=== PATIENT | female | born 1950 | race Caucasian/White ===

== ENCOUNTER → 2018-05-27 07:52 | Outpatient (CLI) | payer MEDICARE, OTHER, SELFPAY ==
[2018-05-27 08:44] LABS: Add Manual Diff / Slide Review NO; Basophils Percent Auto 1.1 % (0-2); Eosinophils Percent Auto 7.6 % (2-4); Hematocrit 37.5 % (36-46); Hemoglobin 12.4 g/dL (12.0-16.0); Lymphocytes Percent Auto 29.7 % (25-40); Mean Corpuscular HGB Conc 33.1 % (30-36); Mean Corpuscular Hemoglobin 27.9 PG (26-34); Mean Corpuscular Volume 84.3 fL (80-100); Monocytes Percent Auto 7.9 % (3-14); Neutrophils Absolute Auto 3300 /uL (3000-5900); Neutrophils Percent Auto 53.7 % (50-75); Platelet Count 301 X10^3/uL (150-400); Red Blood Cell Count 4.45 X10^6/uL (4.0-5.2); Red Cell Distribution Width 14.4 % (11.6-14.8); White Blood Cell Count 6.2 X10^3/uL (4.5-11.0)
[2018-05-27 08:45] LABS: Hemoglobin A1C% w Est Avg Glu 7.2 % (4.0-6.0)
[2018-05-27 09:16] LABS: Alanine Aminotransferase 17 IU/L (9-52); Albumin 4.4 g/dL (3.5-5.0); Albumin Globulin Ratio 1.4 (1.0-2.8); Alkaline Phosphatase 65 U/L (38-126); Aspartate Aminotransferase 18 IU/L (14-36); Bilirubin Total 0.4 mg/dL (0.2-1.3); Blood Urea Nitrogen 27 mg/dL (7-17); Calcium 10.1 mg/dL (8.4-10.2); Carbon Dioxide 27 mmol/L (22-32); Chloride 102 mmol/L (98-107); Cholesterol 300 mg/dL (140-199); Estimated Glomerular Filt Rate 34.4 mL/min (>60); Globulin 3.2 g/dL (1.7-4.1); Glucose 144 mg/dL (80-110); HDL Cholesterol 50 mg/dL (40-60); HEMOLYSIS < 15 (0-50); LDL Cholesterol Calculated 180 mg/dL (<100); Potassium 4.7 mmol/L (3.4-5.1); Sodium 141 mmol/L (137-145); Total Protein 7.6 g/dL (6.3-8.2); Triglycerides 350 mg/dL (35-150)
[2018-05-27 09:39] LABS: Thyroid Stimulating Hormone 2.36 uIU/mL (0.47-4.68)
[2018-05-27 10:59] LABS: Creatinine Urine Random 94.6 mg/dL
[2018-05-27 11:03] LABS: Microalbumi Creatinin Ratio Ur 59.1 ug/mg CR (<30); Microalbumin Urine Random 5.6 mg/dL (0-1.6)
== END ==
PROVIDERS: Family Provider Family Medicine; PCP Family Medicine; Visit Provider Family Medicine
DX: E11.9 Type 2 diabetes mellitus without complications (principal); R73.09 Other abnormal glucose; E66.9 Obesity, unspecified; I10 Essential (primary) hypertension; E78.5 Hyperlipidemia, unspecified
CPT/HCPCS: 36415; 80053; 80061; 82043; 82570; 83036; 84443; 85025

== ENCOUNTER → 2018-05-28 09:35 | Outpatient (CLI) | payer MEDICARE, OTHER, SELFPAY ==
--- NOTE | 2018-05-28 09:37 | DI.RAD.S_ITS ---
PROCEDURE: XR FOOT RT MIN 3V INDICATIONS: Right second toe growth TECHNIQUE: 3 views of the foot were acquired. COMPARISON: [facility], CR, ANKLE 3 VIEWS LEFT, 03/24/2015, 9:00. FINDINGS: Bones: No fractures or dislocations. No suspicious bony lesions. Second toe DIP joint degeneration with adjacent ununited ossicle. There is also possible subchondral osteophyte formation of the middle phalanx. There is also diffuse distal interphalangeal degenerative change. Posterior/plantar calcaneal spurring. There is diffuse midfoot joint degeneration. Soft tissues: No tibiotalar joint effusion. Achilles tendon appears normal. 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 If there is concern for soft tissue mass, contrast-enhanced MRI could be performed as clinically warranted. Possible subchondral osteophyte at the second to DIP joint although if there is suspicion for a alternative etiology, continued serial radiographic surveillance could be performed. Dictated by: Tarun Mccullough M.D. on 05/28/2018 at 10:17 Approved by: Tarun Mccullough M.D. on 05/28/2018 at 10:25
== END ==
PROVIDERS: Family Provider Family Medicine; PCP Family Medicine; Visit Provider Registered Nurse
DX: M20.61 Acquired deformities of toe(s), unspecified, right foot (principal); M19.071 Primary osteoarthritis, right ankle and foot
CPT/HCPCS: 73630

== ENCOUNTER → 2018-06-04 17:23 | Outpatient (CLI) | payer MEDICARE, OTHER, SELFPAY ==
--- NOTE | 2018-06-04 17:28 | DI.MRI.S_ITS ---
PROCEDURE: MR FOOT RT WO/W CON INDICATIONS: Right second toe deformity. Abnormal X-ray TECHNIQUE: Noncontrast sagittal T1 spin echo and T2 fast spin echo with fat saturation, long-axis T1 spin echo and T2 fast spin echo with fat saturation; short-axis T1 spin echo, proton density fast spin echo, and T2 fast spin echo with fat saturation through the forefoot. Post-contrast short axis, long axis, and sagittal T1 spin echo with fat saturation through the forefoot. COMPARISON: [facility], CR, XR FOOT RT MIN 3V, 05/28/2018, 9:37. FINDINGS: Image quality: Excellent. Bones and joints: No suspicious osseous enhancement. The area of radiographic abnormality described on prior study dated 05/28/18, there is no suspicious marrow signal change or enhancement. There is no loss of the normal marrow fat signal intensity on T1-weighted images and the radiographic appearance probably reflects degenerative changes, no discrete mass lesion identified. There is severe PIP and DIPs second toe joint degeneration. There is mild first and fifth MTP joint degeneration. Great toe interphalangeal degeneration with subchondral edema. No bone marrow contusions or metatarsal stress fractures. The sesamoid bones appear in expected positions, without internal edema. No intraosseous lesions. Soft tissues: Within the plantar subcutaneous soft tissues of the second toe the level of the PIP joint, there is 7 mm focus of ill-defined subcutaneous enhancement, too small to characterize and technically nonspecific. The pattern appears non-masslike. The visualized plantar foot muscles demonstrate normal signal and bulk. Visualized flexor and extensor tendons appear intact, without tenosynovitis. The distal insertions of the peroneus brevis and longus tendons appear intact. The principal Lisfranc ligament appears intact. Prominent fluid collections between the first and second and third and fourth metatarsal heads suggestive of intermetatarsal bursitis. Sagittal images demonstrate no evidence for plantar plate tears. IMPRESSION: Severe second toe PIP and DIP joint degeneration. Ill-defined enhancement involving the plantar subcutaneous soft tissues of the second toe at the PIP joint. The appearance is nonspecific. This could represent reactive enhancement to degenerative changes, infection or nonspecific inflammation, potentially early adventitial bursitis. Neoplastic etiology is statistically much less likely, nonetheless please correlate with direct visual inspection and recommend clinical management. Elsewhere, suspicious enhancement or discrete soft tissue mass identified. The clinically reported deformity could potentially be related to prominent second toe osteophyte formation. First-second and third-fourth intermetatarsal bursitis. Dictated by: Tarun Mccullough M.D. on 06/06/2018 at 10:51 Approved by: Tarun Mccullough M.D. on 06/06/2018 at 11:08
== END ==
PROVIDERS: PCP Family Medicine; Visit Provider Registered Nurse
DX: M20.61 Acquired deformities of toe(s), unspecified, right foot (principal); M19.071 Primary osteoarthritis, right ankle and foot; M71.571 Other bursitis, not elsewhere classified, right ankle and foot
CPT/HCPCS: 73720; A9579

== ENCOUNTER → 2018-06-16 15:02 | Outpatient (CLI) | payer MEDICARE, OTHER, SELFPAY ==
--- NOTE | 2018-06-16 15:03 | DI.NM.S_ITS ---
PROCEDURE: NM BONE 3 PHASE RADIOPHARMACEUTICAL: 20.20 mCi Tc-99m MDP IV. INDICATIONS: Confirm atypical degenerative joint disease TECHNIQUE: Multiple bone scintigrams were obtained after intravenous injection of Tc-99m MDP, including flow, blood pool, and delayed images centered to the region of interest. COMPARISON: [facility], CR, XR FOOT RT MIN 3V, 05/28/2018, 9:37. [facility], MR, MR FOOT RT WO/W CON, 06/04/2018, 17:49. FINDINGS: No focal area of significantly increased radiotracer uptake is seen in bilateral flap tearing flow and blood pool phase of the scan. During delayed phase of the scan, there is moderately increased radiotracer uptake involving lateral aspect of mid foot possibly involving fourth and fifth TMT joints. Moderately increased radiotracer uptake is also seen involving distal second toe likely involving the second PIP and DIP joints. Mildly increased radiotracer uptake throughout bilateral MTP joints are seen. IMPRESSION: No evidence of osteomyelitis or fracture in right foot. Finding is most suggestive of osteoarthritic changes involving the second PIP and DIP joints. Osteoarthritic changes also noted involving bilateral first through fifth MTP joints as well as right fourth and fifth TMT joints. Dictated by: Cj Hernandez M.D. on 06/17/2018 at 9:18 Approved by: Cj Hernandez M.D. on 06/17/2018 at 9:42
== END ==
PROVIDERS: Family Provider Orthopaedic Surgery; PCP Family Medicine; Visit Provider Registered Nurse
DX: M19.072 Primary osteoarthritis, left ankle and foot (principal); M19.071 Primary osteoarthritis, right ankle and foot
CPT/HCPCS: 78315; A9503

== ENCOUNTER → 2018-09-02 12:51 | Outpatient (CLI) | payer MEDICARE, OTHER, SELFPAY | PROVIDERS: PCP Family Medicine; Visit Provider Family Medicine | DX: M85.852 Other specified disorders of bone density and structure, left thigh (principal); Z78.0 Asymptomatic menopausal state; E11.9 Type 2 diabetes mellitus without complications | CPT/HCPCS: 77080 ==

== ENCOUNTER → 2018-09-03 09:01 | Outpatient (CLI) | payer MEDICARE, OTHER, SELFPAY ==
[2018-09-03 09:42] LABS: Hemoglobin A1C% w Est Avg Glu 6.7 % (4.0-6.0)
[2018-09-03 09:56] LABS: BUN Creatinine Ratio 13.8 (6-22); Blood Urea Nitrogen 18 mg/dL (7-17); Calcium 9.3 mg/dL (8.4-10.2); Carbon Dioxide 25 mmol/L (22-32); Chloride 106 mmol/L (98-107); Cholesterol 227 mg/dL (140-199); Estimated Glomerular Filt Rate 40.6 mL/min (>60); Glucose 128 mg/dL (80-110); HDL Cholesterol 44 mg/dL (40-60); HEMOLYSIS < 15 (0-50); LDL Cholesterol Calculated 106 mg/dL (<100); Potassium 4.3 mmol/L (3.4-5.1); Sodium 140 mmol/L (137-145); Triglycerides 387 mg/dL (35-150)
[2018-09-03 11:20] LABS: Creatinine Urine Random 120.5 mg/dL
[2018-09-03 12:54] LABS: Microalbumi Creatinin Ratio Ur 680.4 ug/mg CR (<30)
== END ==
PROVIDERS: PCP Family Medicine; Visit Provider Family Medicine
DX: E11.9 Type 2 diabetes mellitus without complications (principal)
CPT/HCPCS: 36415; 80048; 80061; 82043; 82570; 83036

== ENCOUNTER → 2020-08-10 13:07 | Outpatient (CLI) | payer MEDICARE, OTHER, SELFPAY ==
[2020-08-10] MEDS: COVID-19 VACC #1, MRNA(MOD) 100 MCG/0.5 ML VIAL IM (13:13)
== END ==
PROVIDERS: PCP Family Medicine; Visit Provider Internal Medicine
DX: Z23 Encounter for immunization (principal)
CPT/HCPCS: 0011A; 91301

== ENCOUNTER → 2020-09-07 10:44 | Outpatient (CLI) | payer MEDICARE, OTHER, SELFPAY ==
[2020-09-07] MEDS: COVID-19 VACC #2, MRNA(MOD) 100 MCG/0.5 ML VIAL IM (10:55)
== END ==
PROVIDERS: PCP Family Medicine; Visit Provider Internal Medicine
DX: Z23 Encounter for immunization (principal)
CPT/HCPCS: 0012A; 91301

== ENCOUNTER → 2020-09-27 17:58 | Outpatient (CLI) | payer MEDICARE, OTHER, SELFPAY | PROVIDERS: PCP Nurse Practitioner; Visit Provider Physician Assistant | DX: N34.3 Urethral syndrome, unspecified (principal) | CPT/HCPCS: 87077; 87086; 87186 ==

== ENCOUNTER → 2020-10-25 07:02 | Outpatient (CLI) | payer MEDICARE, OTHER, SELFPAY ==
--- NOTE | 2020-10-25 07:04 | DI.US.S_ITS ---
PROCEDURE: US PELVIC COMPLETE INDICATIONS: PELVIC PAIN TECHNIQUE: Real-time scanning was performed of the pelvic organs, with image documentation. Additional endovaginal scanning was necessary due to incomplete visualization of the adnexal and endometrial structures by transabdominal scanning. COMPARISON: [facility], , PELVIC COMPLETE, 06/14/2009, 7:30. FINDINGS: Uterus: Uterus is normal in size at 7.4 x 5.2 x 3.9 cm. The uterus is heterogeneous, with nabothian cyst and a heterogeneous cervix. The endometrium measures 3 mm in combined thickness. Hypoechoic uterine lesions are seen, which are attributed to fibroids. They measure as follows: Left posterior uterus, intramural, 2.2 x 2.5 x 2.5 cm, prior 2.7 x 3 x 3.3 cm Mid anterior uterus, intramural, 1.5 x 1.2 x 1.9 cm, prior 1.7 x 1.7 x 1.5 cm Right posterior uterus, subserosal, 1.8 x 1.4 x 1.9 cm, prior 2.9 x 1.7 x 1.8 cm Left posterior fundus, intramural, 0.8 x 0.7 x 0.7 cm, previously not seen Ovaries: The right ovary is not well seen. The left ovary measures 2.4 x 1.4 x 1.2 cm. The left ovary is heterogeneous with echogenic foci within it. Other: No pathologic free abdominal or pelvic fluid. IMPRESSION: The endometrial stripe is not thickened. Heterogeneous uterus, with numerous fibroids. Heterogeneous left ovary, with internal echogenic foci, which are likely related to benign calcification. Dictated by: Nicholas Alejandra M.D. on 10/25/2020 at 8:49 Approved by: Nicholas Alejandra M.D. on 10/25/2020 at 9:04
[2020-10-25 08:42] LABS: Alanine Aminotransferase 20 IU/L (<35); Albumin 3.9 g/dL (3.5-5.0); Albumin Globulin Ratio 1.3 (1.0-2.8); Alkaline Phosphatase 53 U/L (38-126); Aspartate Aminotransferase 29 IU/L (14-36); BUN Creatinine Ratio 17.6 (6-22); Bilirubin Total 0.3 mg/dL (0.2-1.3); Blood Urea Nitrogen 28 mg/dL (7-17); Calcium 9.8 mg/dL (8.4-10.2); Carbon Dioxide 24 mmol/L (22-32); Chloride 103 mmol/L (98-107); Cholesterol 255 mg/dL (140-199); Globulin 2.9 g/dL (1.7-4.1); Glucose 155 mg/dL (80-110); HDL Cholesterol 47 mg/dL (40-60); HEMOLYSIS < 15 (0-50); LDL Cholesterol Calculated 134 mg/dL (<100); Potassium 4.3 mmol/L (3.4-5.1); Sodium 138 mmol/L (137-145); Total Protein 6.8 g/dL (6.3-8.2); Triglycerides 372 mg/dL (35-150)
[2020-10-25 08:52] LABS: Hemoglobin A1C% w Est Avg Glu 7.2 % (4.0-6.0)
[2020-10-25 09:11] LABS: Free T3, Triiodothyronine Free 3.37 pg/mL (2.77-5.27); Free T4, Direct Thyroxine 1.09 ng/dL (0.78-2.19)
[2020-10-25 09:25] LABS: Thyroid Stimulating Hormone 3.21 uIU/mL (0.47-4.68)
[2020-10-25 09:27] LABS: Appearance Urine UA CLEAR; Bilirubin Urine UA NEGATIVE (NEGATIVE); Color Urine UA YELLOW; Glucose Urine UA NEGATIVE (Negative); Ketones Urine UA NEGATIVE (NEGATIVE); Leukocyte Esterase Urine UA NEGATIVE (NEGATIVE); Nitrite Urine UA POSITIVE (Negative); Occult Blood Urine UA TRACE-INTACT (Negative); Protein Urine UA NEGATIVE (Negative); Specific Gravity Urine UA 1.025 (1.000-1.035); Urobilinogen Urine UA 0.2 E.U./dL (0.2)
[2020-10-25 09:34] LABS: Bacteria Urine Many (>30); Culture Indicated Urine Specimen Cultured; RBC Urine 0-1/HPF (0-5/HPF); Squamous Epithelial Cell Urine 1-5 /HPF (0-5/HPF); WBC Urine 1-5/HPF (0-5/HPF)
[2020-10-25 10:01] LABS: Creatinine Urine Random 147.9 mg/dL
[2020-10-25 10:03] LABS: Microalbumi Creatinin Ratio Ur 39.2 ug/mg CR (<30); Microalbumin Urine Random 5.8 mg/dL (0-1.6)
== END ==
PROVIDERS: PCP Nurse Practitioner; Referring Provider Nurse Practitioner; Visit Provider Nurse Practitioner
DX: R10.2 Pelvic and perineal pain (principal); D25.1 Intramural leiomyoma of uterus; D25.2 Subserosal leiomyoma of uterus; E11.9 Type 2 diabetes mellitus without complications; E78.2 Mixed hyperlipidemia; I10 Essential (primary) hypertension; N30.00 Acute cystitis without hematuria; Z79.899 Other long term (current) drug therapy
CPT/HCPCS: 36415; 76830; 76856; 80053; 80061; 81001; 82043; 82570; 83036; 84439; 84443; 84481; 87077; 87086; 87186

== ENCOUNTER → 2020-12-14 10:10 | Outpatient (CLI) | payer MEDICARE, OTHER, SELFPAY ==
[2020-12-14 11:25] LABS: Alanine Aminotransferase 18 IU/L (<35); Albumin 4.1 g/dL (3.5-5.0); Albumin Globulin Ratio 1.4 (1.0-2.8); Alkaline Phosphatase 57 U/L (38-126); Aspartate Aminotransferase 41 IU/L (14-36); BUN Creatinine Ratio 21.1 (6-22); Bilirubin Total 0.3 mg/dL (0.2-1.3); Blood Urea Nitrogen 31 mg/dL (7-17); Calcium 10.3 mg/dL (8.4-10.2); Carbon Dioxide 22 mmol/L (22-32); Chloride 100 mmol/L (98-107); Globulin 2.9 g/dL (1.7-4.1); Glucose 136 mg/dL (80-110); HEMOLYSIS < 15 (0-50); Potassium 4.6 mmol/L (3.4-5.1); Sodium 133 mmol/L (137-145)
[2020-12-15 09:33] LABS: Fecal Immunochemical Test Negative (Negative)
== END ==
PROVIDERS: PCP Nurse Practitioner; Referring Provider Nurse Practitioner; Visit Provider Nurse Practitioner
DX: E11.9 Type 2 diabetes mellitus without complications (principal); E78.2 Mixed hyperlipidemia; I10 Essential (primary) hypertension; N18.30 Chronic kidney disease, stage 3 unspecified; Z12.11 Encounter for screening for malignant neoplasm of colon
CPT/HCPCS: 36415; 80053; 82274

== ENCOUNTER → 2021-01-05 15:31 | Outpatient (CLI) | payer MEDICARE, OTHER, SELFPAY ==
--- NOTE | 2021-01-05 15:36 | DI.RAD.S_ITS ---
PROCEDURE: XR TOE RT MIN 2V INDICATIONS: right toe pain TECHNIQUE: 3 views of the 2nd toe(s) acquired. COMPARISON: None. FINDINGS: Normal bone mineralization. There is joint space narrowing and marginal osteophytes present without evidence of fracture. Generalized soft tissue swelling noted. IMPRESSION: Degenerative changes without fracture or foreign body Dictated by: Juan Carlos Hernandez M.D. on 01/05/2021 at 18:34 Approved by: Juan Carlos Hernandez M.D. on 01/05/2021 at 18:35
[2021-01-05 16:26] LABS: Uric Acid 11.3 mg/dL (2.5-6.2)
== END ==
PROVIDERS: PCP Nurse Practitioner; Referring Provider Registered Nurse; Visit Provider Registered Nurse
DX: M79.674 Pain in right toe(s) (principal)
CPT/HCPCS: 36415; 73660; 84550

== ENCOUNTER → 2021-01-23 10:10 | Outpatient (CLI) | payer MEDICARE, OTHER, SELFPAY ==
[2021-01-23 11:55] LABS: Hemoglobin A1C% w Est Avg Glu 7.1 % (4.0-6.0)
[2021-01-23 12:28] LABS: Alanine Aminotransferase 22 IU/L (<35); Albumin 3.8 g/dL (3.5-5.0); Albumin Globulin Ratio 1.3 (1.0-2.8); Alkaline Phosphatase 51 U/L (38-126); Aspartate Aminotransferase 31 IU/L (14-36); BUN Creatinine Ratio 15.3 (6-22); Bilirubin Total 0.3 mg/dL (0.2-1.3); Blood Urea Nitrogen 23 mg/dL (7-17); Calcium 10.1 mg/dL (8.4-10.2); Carbon Dioxide 21 mmol/L (22-32); Chloride 108 mmol/L (98-107); Cholesterol 192 mg/dL (140-199); Estimated Glomerular Filt Rate 34.2 mL/min (>60); Glucose 135 mg/dL (80-110); HDL Cholesterol 48 mg/dL (40-60); HEMOLYSIS < 15 (0-50); LDL Cholesterol Calculated 78 mg/dL (<100); Potassium 4.9 mmol/L (3.4-5.1); Sodium 137 mmol/L (137-145); Total Protein 6.8 g/dL (6.3-8.2); Triglycerides 328 mg/dL (35-150)
== END ==
PROVIDERS: PCP Nurse Practitioner; Referring Provider Nurse Practitioner; Visit Provider Nurse Practitioner
DX: E11.9 Type 2 diabetes mellitus without complications (principal); E78.2 Mixed hyperlipidemia; I10 Essential (primary) hypertension; N18.32 Chronic kidney disease, stage 3b
CPT/HCPCS: 36415; 80053; 80061; 83036

== ENCOUNTER → 2021-04-13 15:04 | Outpatient (CLI) | payer MEDICARE, OTHER, SELFPAY ==
--- NOTE | 2021-04-13 15:06 | DI.MG.S_ITS ---
BILATERAL DIGITAL SCREENING MAMMOGRAM 3D/2D WITH CAD: 04/13/2021 CLINICAL: Routine screening. Family history of breast cancer. Comparison is made to exams dated: 10/02/2016 mammogram, 04/06/2015 mammogram, 07/22/2013 mammogram, and 07/22/2013 ultrasound - outside. The tissue of both breasts is predominantly fatty. Current study was also evaluated with a Computer Aided Detection (CAD) system. There are benign calcifications in both breasts. No significant masses, calcifications, or other findings are seen in either breast. There has been no significant interval change. IMPRESSION: BENIGN There is no mammographic evidence of malignancy. A 1 year screening mammogram is recommended. This exam was interpreted at Station ID: [id number]. NOTE: For mammograms, a report in lay terms will be sent to the patient. Approximately 15% of breast malignancies will not be visualized mammographically. In the management of a palpable breast mass, a negative mammogram must not discourage biopsy of a clinically suspicious lesion. Electronically Signed By: Clint Linares acr/arpita:04/13/2021 17:05:18 letter sent: Normal Exam ACR BI-RADS Category 2: Benign Finding(s) 3342F
== END ==
PROVIDERS: PCP Nurse Practitioner; Referring Provider Nurse Practitioner; Visit Provider Nurse Practitioner
DX: Z12.31 Encounter for screening mammogram for malignant neoplasm of breast (principal)
CPT/HCPCS: 77063; 77067

== ENCOUNTER → 2021-07-27 14:40 | Outpatient (CLI) | payer MEDICARE, OTHER, SELFPAY ==
--- NOTE | 2021-07-27 14:41 | DI.US.S_ITS ---
PROCEDURE: US ABDOMEN LIMITED INDICATIONS: UPPER LEFT CHEST WALL LUMP TECHNIQUE: Real-time focused scanning was performed of the abdomen, with image documentation. COMPARISON: None. FINDINGS: No mass, fluid collection, or other abnormality at the patient's area of reported concern. IMPRESSION: Normal study. Dictated by: Finn Foreman M.D. on 07/27/2021 at 15:31 Approved by: Finn Foreman M.D. on 07/27/2021 at 15:32
== END ==
PROVIDERS: PCP Nurse Practitioner; Referring Provider Nurse Practitioner; Visit Provider Nurse Practitioner
DX: R22.2 Localized swelling, mass and lump, trunk (principal)
CPT/HCPCS: 76705

== ENCOUNTER → 2021-08-04 08:01 | Outpatient (CLI) | payer MEDICARE, OTHER, SELFPAY ==
[2021-08-04 08:31] LABS: Hemoglobin A1C% w Est Avg Glu 7.2 % (4.0-6.0)
[2021-08-04 08:51] LABS: Alanine Aminotransferase 22 IU/L (<35); Albumin 4.2 g/dL (3.5-5.0); Albumin Globulin Ratio 1.6 (1.0-2.8); Alkaline Phosphatase 51 U/L (38-126); Aspartate Aminotransferase 37 IU/L (14-36); BUN Creatinine Ratio 18.1 (6-22); Bilirubin Total 0.4 mg/dL (0.2-1.3); Blood Urea Nitrogen 30 mg/dL (7-17); Calcium 10.3 mg/dL (8.4-10.2); Carbon Dioxide 26 mmol/L (22-32); Chloride 104 mmol/L (98-107); Cholesterol 216 mg/dL (140-199); Estimated Glomerular Filt Rate 30.4 mL/min (>60); Globulin 2.7 g/dL (1.7-4.1); Glucose 150 mg/dL (80-110); HDL Cholesterol 62 mg/dL (40-60); HEMOLYSIS 18 (0-50); LDL Cholesterol Calculated 102 mg/dL (<100); Potassium 4.7 mmol/L (3.4-5.1); Sodium 136 mmol/L (137-145); Total Protein 6.9 g/dL (6.3-8.2); Triglycerides 260 mg/dL (35-150)
[2021-08-04 10:10] LABS: Creatinine Urine Random 49.7 mg/dL
[2021-08-04 10:15] LABS: Microalbumi Creatinin Ratio Ur 46.2 ug/mg CR (<30); Microalbumin Urine Random 2.3 mg/dL (0-1.6)
== END ==
PROVIDERS: PCP Nurse Practitioner; Referring Provider Nurse Practitioner; Visit Provider Nurse Practitioner
DX: E11.9 Type 2 diabetes mellitus without complications (principal); E78.2 Mixed hyperlipidemia; I10 Essential (primary) hypertension; N18.32 Chronic kidney disease, stage 3b; Z79.899 Other long term (current) drug therapy
CPT/HCPCS: 36415; 80053; 80061; 82043; 82570; 83036

== ENCOUNTER → 2022-01-16 15:33 | Outpatient (CLI) | payer MEDICARE, OTHER, SELFPAY ==
--- NOTE | 2022-01-16 15:35 | DI.RAD.S_ITS ---
PROCEDURE: XR SKULL<4V INDICATIONS: mass right side posterior side of scalp TECHNIQUE: 3 view(s) of the skull acquired. COMPARISON: None. FINDINGS: Bones: No fractures. Question lucent area occipital region on the lateral view. Visualized sinuses appear clear. Soft tissues: No soft tissue calcifications. No suspicious soft tissue densities. IMPRESSION: Question lytic lesion of the skull in the occipital region. Recommend CT head. Consider possible administration of contrast. Dictated by: Evan Medellin M.D. on 01/16/2022 at 17:18 Approved by: Evan Medellin M.D. on 01/16/2022 at 17:20
== END ==
PROVIDERS: PCP Nurse Practitioner; Referring Provider Nurse Practitioner; Visit Provider Nurse Practitioner
DX: R22.0 Localized swelling, mass and lump, head (principal)
CPT/HCPCS: 70250

== ENCOUNTER → 2022-01-29 11:29 | Outpatient (CLI) | payer MEDICARE, OTHER, SELFPAY ==
--- NOTE | 2022-01-29 11:41 | DI.CT.S_ITS ---
PROCEDURE: CT HEAD/BRAIN WO CON INDICATIONS: eval lytic bone seen on XR TECHNIQUE: Noncontrast 4.5 mm thick angled axial sections acquired from the foramen magnum to the vertex, with coronal and sagittal reformats. For radiation dose reduction, the following was used: automated exposure control, adjustment of mA and/or kV according to patient size. COMPARISON: [facility], , XR SKULL<4V, 01/16/2022, 15:32. FINDINGS: Image quality: Excellent. CSF spaces: Basal cisterns are patent. No extra-axial fluid collections. The ventricles are symmetric in size and shape. Brain: No intracranial bleeds or masses. There is cerebral volume loss for age, with resultant ventricular and sulcal prominence. There are periventricular and deep white matter chronic small vessel ischemic changes. There is intracranial internal carotid artery atherosclerosis. Skull and face: The site of clinical concern is marked by a BB marker. At this site, there is a benign-appearing osteoma involving the external table of the calvarium involving the right occiput, as on series 3, image 20. No suspicious lytic lesions are seen. Incidental note is made of hyperostosis frontalis. This is not considered to be pathologic in a woman of this age. Calvarium and visualized facial bones appear intact, without suspicious lesions. Sinuses: Visualized sinuses and mastoids are clear. IMPRESSION: No suspicious bony lesions are seen. No lytic bony lesions are seen. 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 Dictated by: Nicholas Alejandra M.D. on 01/29/2022 at 11:18 Approved by: Nicholas Alejandra M.D. on 01/29/2022 at 11:20
== END ==
PROVIDERS: PCP Nurse Practitioner; Referring Provider Nurse Practitioner; Visit Provider Nurse Practitioner
DX: D16.4 Benign neoplasm of bones of skull and face (principal)
CPT/HCPCS: 70450

== ENCOUNTER → 2022-02-06 06:59 | Outpatient (CLI) | payer MEDICARE, OTHER, SELFPAY ==
[2022-02-06 07:51] LABS: Alanine Aminotransferase 14 IU/L (<35); Albumin 3.9 g/dL (3.5-5.0); Albumin Globulin Ratio 1.4 (1.0-2.8); Alkaline Phosphatase 51 U/L (38-126); Aspartate Aminotransferase 22 IU/L (14-36); BUN Creatinine Ratio 17.3 (6-22); Bilirubin Total 0.5 mg/dL (0.2-1.3); Blood Urea Nitrogen 27 mg/dL (7-17); Calcium 9.9 mg/dL (8.4-10.2); Carbon Dioxide 22 mmol/L (22-32); Chloride 106 mmol/L (98-107); Cholesterol 184 mg/dL (140-199); Estimated Glomerular Filt Rate 35 mL/min (>60); Globulin 2.7 g/dL (1.7-4.1); Glucose 116 mg/dL (80-110); HDL Cholesterol 52 mg/dL (40-60); HEMOLYSIS < 15 (0-50); LDL Cholesterol Calculated 83 mg/dL (<100); Potassium 4.9 mmol/L (3.4-5.1); Sodium 137 mmol/L (137-145); Total Protein 6.6 g/dL (6.3-8.2); Triglycerides 243 mg/dL (35-150)
[2022-02-06 07:53] LABS: Hemoglobin A1C% w Est Avg Glu 6.7 % (4.0-6.0)
== END ==
PROVIDERS: PCP Nurse Practitioner; Referring Provider Nurse Practitioner; Visit Provider Nurse Practitioner
DX: E11.9 Type 2 diabetes mellitus without complications (principal); E78.2 Mixed hyperlipidemia; E78.1 Pure hyperglyceridemia; N18.32 Chronic kidney disease, stage 3b
CPT/HCPCS: 36415; 80053; 80061; 83036

== ENCOUNTER → 2022-09-14 07:52 | Outpatient (CLI) | payer MEDICARE, OTHER, SELFPAY ==
[2022-09-14 09:14] LABS: Hemoglobin A1C% w Est Avg Glu 7.2 % (4.0-6.0)
[2022-09-14 09:32] LABS: Alanine Aminotransferase 17 IU/L (<35); Albumin 3.7 g/dL (3.5-5.0); Albumin Globulin Ratio 1.5 (1.0-2.8); Alkaline Phosphatase 56 U/L (38-126); Aspartate Aminotransferase 25 IU/L (14-36); BUN Creatinine Ratio 13.5 (6-22); Bilirubin Total 0.4 mg/dL (0.2-1.3); Blood Urea Nitrogen 23 mg/dL (7-17); Calcium 9.4 mg/dL (8.4-10.2); Carbon Dioxide 23 mmol/L (22-32); Chloride 104 mmol/L (98-107); Cholesterol 220 mg/dL (140-199); Estimated Glomerular Filt Rate 31 mL/min (>60); Globulin 2.5 g/dL (1.7-4.1); Glucose 142 mg/dL (80-110); HDL Cholesterol 52 mg/dL (40-60); HEMOLYSIS < 15 (0-50); LDL Cholesterol Calculated 91 mg/dL (<100); Sodium 136 mmol/L (137-145); Total Protein 6.2 g/dL (6.3-8.2); Triglycerides 387 mg/dL (35-150)
[2022-09-14 10:45] LABS: Thyroid Stimulating Hormone 2.14 uIU/mL (0.47-4.68)
[2022-09-14 15:18] LABS: Free T3, Triiodothyronine Free 4.41 pg/mL (2.77-5.27); Free T4, Direct Thyroxine 1.19 ng/dL (0.78-2.19)
[2022-09-17 16:31] LABS: Hep C Virus Ab w/Reflex Quant NEGATIVE s/c (NEGATIVE)
== END ==
PROVIDERS: PCP Nurse Practitioner; Referring Provider Nurse Practitioner; Visit Provider Nurse Practitioner
DX: E11.9 Type 2 diabetes mellitus without complications (principal); E78.2 Mixed hyperlipidemia; I10 Essential (primary) hypertension; N18.32 Chronic kidney disease, stage 3b; Z11.59 Encounter for screening for other viral diseases
CPT/HCPCS: 36415; 80053; 80061; 83036; 84439; 84443; 84481; 86803

== ENCOUNTER → 2023-10-07 08:58 | Outpatient (CLI) | payer MEDICARE, OTHER, SELFPAY ==
[2023-10-07 10:31] LABS: Hemoglobin A1C% w Est Avg Glu 6.8 % (4.0-6.0)
[2023-10-07 11:03] LABS: Creatinine Urine Random 101.8 mg/dL
[2023-10-07 11:07] LABS: Alanine Aminotransferase 13 IU/L (<35); Albumin 3.8 g/dL (3.5-5.0); Albumin Globulin Ratio 1.3 (1.0-2.8); Alkaline Phosphatase 65 U/L (38-126); Aspartate Aminotransferase 21 IU/L (14-36); BUN Creatinine Ratio 17.4 (6-22); Bilirubin Total 0.5 mg/dL (0.2-1.3); Blood Urea Nitrogen 34 mg/dL (7-17); Calcium 10.2 mg/dL (8.4-10.2); Carbon Dioxide 21 mmol/L (22-32); Chloride 108 mmol/L (98-107); Cholesterol 247 mg/dL (140-199); Estimated Glomerular Filt Rate 27 mL/min (>60); Globulin 2.9 g/dL (1.7-4.1); Glucose 120 mg/dL (80-110); HDL Cholesterol 57 mg/dL (40-60); HEMOLYSIS < 15 (0-50); LDL Cholesterol Calculated 118 mg/dL (<100); Sodium 135 mmol/L (137-145); Total Protein 6.7 g/dL (6.3-8.2); Triglycerides 361 mg/dL (35-150)
[2023-10-07 11:39] LABS: Protein (Total) Urine Random 402 mg/dL (0-12); Protein Creatinine Ratio Urine 3.94 GRAM/24H
== END ==
PROVIDERS: PCP Nurse Practitioner; Referring Provider Nurse Practitioner; Visit Provider Nurse Practitioner
DX: E11.9 Type 2 diabetes mellitus without complications (principal); E78.2 Mixed hyperlipidemia; N18.30 Chronic kidney disease, stage 3 unspecified; Z79.899 Other long term (current) drug therapy
CPT/HCPCS: 36415; 80053; 80061; 82570; 83036; 84156

== ENCOUNTER → 2023-12-24 14:04 | Outpatient (CLI) | payer MEDICARE, OTHER, SELFPAY ==
--- NOTE | 2023-12-24 14:06 | DI.MG.S_ITS ---
BILATERAL DIGITAL SCREENING MAMMOGRAM 3D/2D WITH CAD: 12/24/2023 CLINICAL: Routine screening. Family history of breast cancer. Comparison is made to exams dated: 04/13/2021 mammogram - [facility], 10/02/2016 mammogram, and 04/06/2015 mammogram - outside. Both breasts are heterogeneously dense, which may obscure small masses (category c / 51-75% glandular tissue). Current study was also evaluated with a Computer Aided Detection (CAD) system. There are benign calcifications in both breasts. No significant masses, calcifications, or other findings are seen in either breast. There has been no significant interval change. IMPRESSION: BENIGN There is no mammographic evidence of malignancy. A 1 year screening mammogram is recommended. Based on the Tyrer Cuzick model (a risk assessment model) the patient's lifetime risk is 5.2% and her 10 year risk is 4.7%. According to the ACR, ACS, and NCCN guidelines, an annual breast MRI exam along with mammogram is recommended if the patient's lifetime risk is 20% or greater. This exam was interpreted at Station ID: [id number]. NOTE: For mammograms, a report in lay terms will be sent to the patient. Approximately 15% of breast malignancies will not be visualized mammographically. In the management of a palpable breast mass, a negative mammogram must not discourage biopsy of a clinically suspicious lesion. Electronically Signed By: Luis Daniel thomas/arpita:12/25/2023 16:46:21 letter sent: Normal Exam ACR BI-RADS Category 2: Benign Finding(s) 3342F
== END ==
LOC: MAMMO 14:05
PROVIDERS: PCP Nurse Practitioner; Referring Provider Nurse Practitioner; Visit Provider Nurse Practitioner
DX: Z12.31 Encounter for screening mammogram for malignant neoplasm of breast (principal); Z80.3 Family history of malignant neoplasm of breast; R92.333 Mammographic heterogeneous density, bilateral breasts
CPT/HCPCS: 77063; 77067

== ENCOUNTER → 2024-03-06 08:03 | Outpatient (CLI) | payer MEDICARE, OTHER, SELFPAY ==
[2024-03-06 09:53] LABS: Hemoglobin A1C% w Est Avg Glu 5.9 % (4.0-6.0)
[2024-03-06 10:07] LABS: Alanine Aminotransferase 16 IU/L (<35); Albumin 3.9 g/dL (3.5-5.0); Albumin Globulin Ratio 1.6 (1.0-2.8); Alkaline Phosphatase 66 U/L (38-126); Aspartate Aminotransferase 22 IU/L (14-36); BUN Creatinine Ratio 12.6 (6-22); Bilirubin Total 0.4 mg/dL (0.2-1.3); Blood Urea Nitrogen 27 mg/dL (7-17); Calcium 9.9 mg/dL (8.4-10.2); Carbon Dioxide 18 mmol/L (22-32); Chloride 108 mmol/L (98-107); Cholesterol 205 mg/dL (140-199); Estimated Glomerular Filt Rate 24 mL/min (>60); Globulin 2.5 g/dL (1.7-4.1); Glucose 126 mg/dL (80-110); HDL Cholesterol 43 mg/dL (40-60); HEMOLYSIS < 15 (0-50); LDL Cholesterol Calculated 88 mg/dL (<100); Sodium 137 mmol/L (137-145); Total Protein 6.4 g/dL (6.3-8.2); Triglycerides 369 mg/dL (35-150)
[2024-03-06 10:11] LABS: Potassium 5.5 mmol/L (3.4-5.1)
== END ==
PROVIDERS: PCP Nurse Practitioner; Referring Provider Nurse Practitioner; Visit Provider Nurse Practitioner
DX: E11.69 Type 2 diabetes mellitus with other specified complication (principal); E78.2 Mixed hyperlipidemia; N18.30 Chronic kidney disease, stage 3 unspecified; Z79.899 Other long term (current) drug therapy; I12.9 Hypertensive chronic kidney disease with stage 1 through stage 4 chronic kidney disease, or unspecified chronic kidney disease
CPT/HCPCS: 36415; 80053; 80061; 83036

== ENCOUNTER 2024-05-08 11:47 | Emergency (ER) | payer MEDICARE, OTHER, SELFPAY ==
[2024-05-08] VITALS (15 sets, daily range): BP systolic 124–144; BP diastolic 63–94; PULSE 63–76; RESP 16–27; TEMP 36.6; O2SAT 78–100; BMI 27.9
--- NOTE | 2024-05-08 12:01 | EKG_ITS ---
Merged With [facility] [address] [place] [address] Test Date: 2024-05-08 Pat Name: Soumya Reynolds Department: Merged With [facility] Room: Gender: Female [employer]: RYAN : 1950 Requested By: Order Number: [id number] Reading MD: Jonathan Rosa Measurements Intervals [place] Rate: 66 P: 50 MN: 202 QRS: 36 QRSD: 92 T: 24 QT: 404 QTc: 423 Interpretive Statements Normal sinus rhythm Electronically Signed On 05-08-2024 17:29:02 PDT by Jonathan Rosa
--- NOTE | 2024-05-08 12:56 | PC.NURSE ---
Patient reports 9 days of diarrhea, approx 20 episodes a day. Patient is shakey and little lightheaded as of last day or two.
[2024-05-08 13:01] LABS: Add Manual Diff / Slide Review NO; Basophils Absolute Auto 0 /uL (0-100); Basophils Percent Auto 0.3 % (0-2); Eosinophils Absolute Auto 900 /uL (0-450); Hematocrit 38.1 % (36-46); Hemoglobin 12.4 g/dL (12.0-16.0); Lymphocytes Absolute Auto 2400 /uL (1100-4500); Lymphocytes Percent Auto 16.9 % (25-40); Mean Corpuscular HGB Conc 32.5 % (30-36); Mean Corpuscular Hemoglobin 27.1 PG (26-34); Mean Corpuscular Volume 83.6 fL (80-100); Monocytes Absolute Auto 1300 /uL (0-900); Monocytes Percent Auto 8.7 % (3-14); Neutrophils Absolute Auto 9800 /uL (1500-7000); Neutrophils Percent Auto 68.1 % (50-75); Platelet Count 339 X10^3/uL (150-400); Red Blood Cell Count 4.56 X10^6/uL (4.0-5.2); Red Cell Distribution Width 16.2 % (11.6-14.8); White Blood Cell Count 14.4 X10^3/uL (4.5-11.0)
--- NOTE | 2024-05-08 13:03 | ED.NAVMDI ---
HPI - Nausea/Vomiting/Diarrhea General Chief complaint: Nausea/Vomiting/Diarrhea Stated complaint: WIC; diarrhea, shaky Time Seen by Provider: 05/08/24 12:57 History of Present Illness HPI Narrative: Patient here with sent here from walk-in clinic for watery diarrhea 8 or 9 times a day for the past 9 days. No known sick contacts no foreign travel no contaminated foods no other people with these symptoms around her. No abdominal pain. Has had decreased urine output. Success very shaky today. Please see notes below from walk-in clinic. No recent antibiotics no fever chills. HPI Details: X9 days 74-year-old female presents today with watery stools 8-9 episodes per day for the last 9 days. She still continues to eat but has only been doing yogurt and bananas, she reports her urine output is a little decreased as well, she has had no fever during this time and no abdominal pain or cramping. She denied any nausea or vomiting. She states the episodes come on urgently but she has had no incontinence of stool. She denies any recent travel, camping, her has no symptoms. 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 She stopped metformin back in October and started Mounjaro, she states that her dose was increased a month ago but again she never had any associated diarrhea with this. She endorses a history of diverticulosis but no other GI issues. She states she feels a little lightheaded and weak, and that ?my blood pressure is never been that low?. All other systems are reviewed and are negative. Related Data Home Medications Medication Instructions Recorded Confirmed diphenhydramine HCl 25 mg capsule 25 mg PO BEDTIME PRN 05/28/18 05/08/24 (Benadryl) omega 6-erx-lom-fish oil 1,000 mg 1 cap PO BID 01/10/22 05/08/24 (120 mg-180 mg) capsule (Fish Oil) Previous Rx's Medication Instructions Recorded Disabled Parking #1 ea 05/26/18 disabled parking permit #1 ea 09/04/18 disabled parking permit #1 ea 09/04/18 Disabled Parking Permit See Rx Instructions .Route 09/14/19 .COMPLEX #1 unit Glucometer #1 ea 02/08/22 Glucose: Test Strips #250 ea 02/08/22 Lancers #300 ea 02/08/22 Lancette #1 ea 02/08/22 atenolol 50 mg tablet See Rx Instructions .Route 10/16/23 .COMPLEX #180 tabs ezetimibe 10 mg tablet (Zetia) 10 mg PO DAILY #90 tabs 10/16/23 glipizide 5 mg tablet 5 mg PO BID #180 tabs 10/16/23 lisinopril 20 mg tablet 40 mg (2 x 20 mg) PO BID #360 tabs 10/16/23 omeprazole 20 mg capsule,delayed 20 mg PO DAILY PRN GERD #90 caps 10/16/23 release rosuvastatin 5 mg tablet 5 mg PO 2XW #24 tabs 01/28/24 tirzepatide 5 mg/0.5 mL 5 mg (0.5 mL) SUBCUT QWEEK #2 mL 03/09/24 subcutaneous pen injector diphenoxylate-atropine 2.5 1 tab PO Q12H PRN diarrhea #10 tabs 05/08/24 mg-0.025 mg tablet (Lomotil) Allergies Allergy/AdvReac Type Severity Reaction Status Date / Time calcium AdvReac Mild MUSCLE PAIN Verified 05/08/24 11:25 Kopbirp-GZP-UfF Reductase AdvReac Mild Leg pains Verified 05/08/24 11:59 Inhibitor [Silqong-Cxv-Qjn Reductase Inhibitor] Sulfa (Sulfonamide AdvReac Mild N/V Verified 05/08/24 11:25 Antibiotics) Review of Systems Review of Systems Narrative: GENERAL: negative chills, fatigue, malaise, fever, sweats. HEENT: negative sinus pain, ear pain, sore throat RESPIRATORY: negative dyspnea, cough CARDIOVASCULAR: negative chest pain, palpitations GASTROINTESTINAL: negative nausea, vomiting, abdominal pain, positive diarrhea : negative dysuria, frequency, hematuria MUSCULOSKELETAL: negative muscle or bony pain SKIN: negative rash, skin lesions NEUROLOGIC: negative weakness, numbness ROS Unobtainable: All systems reviewed & are unremarkable except as noted in HPI and below Patient History Medical History Type 2 diabetes with complication SOB (shortness of breath) CKD stage 4 due to type 2 diabetes mellitus Obesity (BMI 30.0-34.9) Mixed hyperlipidemia due to type 2 diabetes mellitus Essential tremor Toe pain, right UTI (urinary tract infection) Degenerative joint disease of knee, left (~1996) History of ectopic Liver lesion, 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) Hypertension Hyperlipidemia Scoliosis (10/31/16) Osteopenia (10/31/16) Low back pain (10/31/16) Elevated hemoglobin A1c (10/31/16) Left ankle pain (03/16/15) Surgical History History of gynecologic surgery History of tonsillectomy History of left knee surgery (~1996) History of colonoscopy with polypectomy (12/14/16) History of colonoscopy (07/15/05) History of total knee arthroplasty (03/15/17) Family History Father CAD (coronary artery disease) Heart attack Mother Hyperlipidemia Stroke Cardiac arrhythmia Cancer Hypertension Heart disease Diabetes mellitus Family/Other Heart attack Social History Smoking Status: Never smoker Smoking Status: Never smoker Exam Narrative Exam Narrative: GENERAL: in no distress, not toxic not dyspneic HEAD: Normocephalic. EYES: Pupils equal round ENT: Mucous membranes dry, NECK: Trachea midline. Tenting of the skin CARDIOVASCULAR: Regular rate and rhythm RESPIRATORY: Clear to auscultation. Breath sounds equal bilaterally. No wheezes, rales, or rhonchi. GASTROINTESTINAL: Abdomen soft, non-tender, abdomen is soft flat nontender no peritoneal signs no guarding no rebound no pain out of portion exam. Bowel sounds are present. No CVA tenderness EXTREMITIES: No gross deformities. BACK: No flank tenderness. NEURO: AOx4. Clear speech SKIN: Warm and dry PSYCH: Not anxious, is cooperative Initial Vital Signs Initial Vital Signs: Vital Signs Temperature 97.8 F 05/08/24 11:56 Pulse Rate 76 05/08/24 11:56 Respiratory Rate 16 05/08/24 11:56 Blood Pressure 128/94 H 05/08/24 11:56 Pulse Oximetry 98 05/08/24 11:56 Oxygen Delivery Method Room Air 05/08/24 11:56 Course Orders Ordered: Discontinued Medications Sodium Chloride (Normal Saline 0.9%) 1,000 mls @ 1,000 mls/hr IV BOLUS ONE Stop: 05/08/24 13:59 Last Infusion: 05/08/24 15:22 Dose: Infused Documented By: Admin: 05/08/24 13:09 Dose: 1,000 mls/hr Documented By: MARIIA Ondansetron HCl (Ondansetron 4 Mg/2 Ml Inj) 4 mg IV NOW PRN PRN Reason: Nausea And Vomiting Vital Signs Vital signs: Vital Signs - 8 hr 05/08/24 11:56 05/08/24 12:57 05/08/24 13:00 Temperature 97.8 F Pulse Rate 76 64 66 Respiratory Rate 16 18 19 Blood Pressure 128/94 H Pulse Oximetry 98 Oxygen Delivery Method Room Air 05/08/24 13:09 05/08/24 13:09 05/08/24 13:32 Temperature Pulse Rate 65 70 Respiratory Rate 27 H Blood Pressure 130/73 Pulse Oximetry 97 Oxygen Delivery Method 05/08/24 13:43 05/08/24 13:43 Temperature Pulse Rate 66 Respiratory Rate 23 Blood Pressure 143/77 H Pulse Oximetry 93 Oxygen Delivery Method MDM - Nausea/Vomiting/Diarrhea Lab Data 05/08/24 12:50 05/08/24 12:50 Labs: Lab Results 05/08/24 05/08/24 05/08/24 Range/Units 12:50 13:00 13:38 WBC 14.4 H (4.5-11.0) X10^3/uL RBC 4.56 (4.0-5.2) X10^6/uL Hgb 12.4 (12.0-16.0) g/dL Hct 38.1 (36-46) % MCV 83.6 (80-100) fL MCH 27.1 (26-34) PG MCHC 32.5 (30-36) % RDW 16.2 H (11.6-14.8) % Plt Count 339 (150-400) X10^3/uL Neut % (Auto) 68.1 (50-75) % Lymph % (Auto) 16.9 L (25-40) % [place] % (Auto) 8.7 (3-14) % Eos % (Auto) 6.0 H (2-4) % Baso % (Auto) 0.3 (0-2) % Neut # (Auto) 9800 H (9293-5935) /uL Lymph # (Auto) 2400 (5792-5454) /uL [place] # (Auto) 1300 H (0-900) /uL Eos # (Auto) 900 H (0-450) /uL Baso # (Auto) 0 (0-100) /uL Sodium 128 L (137-145) mmol/L Potassium 4.1 (3.4-5.1) mmol/L Chloride 102 (98-107) mmol/L Carbon Dioxide 13 L (22-32) mmol/L BUN 50 H (7-17) mg/dL Creatinine 2.95 H (0.52-1.04) mg/dL Estimated GFR 16 L (>60) mL/min BUN/Creatinine Ratio 16.9 (6-22) Glucose 133 H (80-110) mg/dL Calcium 9.2 (8.4-10.2) mg/dL Magnesium 1.2 L (1.6-2.3) mg/dL Total Bilirubin 0.6 (0.2-1.3) mg/dL AST 18 (14-36) IU/L ALT 11 (<35) IU/L Alkaline Phosphatase 51 (38-126) U/L Total Protein 7.0 (6.3-8.2) g/dL Albumin 4.1 (3.5-5.0) g/dL Globulin 2.9 (1.7-4.1) g/dL Albumin/Globulin Ratio 1.4 (1.0-2.8) Lipase 258 (23-300) U/L Urine RBC 1-5/hpf (0-5/HPF) Urine WBC 30-100/hpf H (0-5/HPF) Ur Squamous Epith Cells 1-5 /hpf (0-5/HPF) Urine Bacteria Many (>30) H (None) Ur Culture Indicated? TNP Vol Urine Centrifuged 10ml (spun) Stl C. cayetanensis PCR (Not Detect) Stool Rotavirus (PCR) (Not Detect) Stool Adenovirus (PCR) (Not Detect) Stool Astrovirus (PCR) (Not Detect) Stool Cryptosporidium PCR (Not Detect) Stl E.coli Shiga Tox PCR (Not Detect) St Sh/Enteroin Ecoli PCR (Not Detect) Stl Enterotoxigenic E PCR (Not Detect) Stool EPEC (PCR) (Not Detect) Stl E. histolytica PCR (Not Detect) Stool Giardia Lamblia PCR (Not Detect) Stool Sapovirus (PCR) (Not Detect) Stl P. shigelloides PCR (Not Detect) St Y.enterocolitica PCR (Not Detect) Stool Vibrio (PCR) (Not Detect) Stl Vibrio cholerae PCR (Not Detect) Stl Enteroaggr Ecoli PCR (Not Detect) Stl Norovirus GI/GII PCR (Not Detect) Chlamy pneumoniae PCR Not detected (Not Detect) Adenovirus (PCR) Not detected (Not Detect) B. pertussis DNA (PCR) Not detected (Not Detect) B.parapertussis DNA PCR Not detected (Not Detecte) Campylobacter (PCR) (Not Detect) C. difficile Tox (PCR) (Not Detect) Coronavirus OC43 (PCR) Not detected (Not Detect) Coronavirus HKU1 (PCR) Not detected (Not Detect) Coronavirus 229E (PCR) Not detected (Not Detect) SARS-CoV-2 (PCR) Not detected (Not Detecte) Coronavirus NL63 (PCR) Not detected (Not Detect) Human Metapneumovir PCR Not detected (Not Detect) Influenza Type A (PCR) Not detected (Not Detect) Influenza Type B (PCR) Not detected (Not Detect) M. pneumoniae (PCR) Not detected (Not Detect) Parainfluenza 1 (PCR) Not detected (Not Detect) Parainfluenza 2 (PCR) Not detected (Not Detect) Parainfluenza 3 (PCR) Not detected (Not Detect) Parainfluenza 4 (PCR) Not detected (Not Detect) RSV (PCR) Not detected (Not Detect) Entero/Rhino (PCR) Not detected (Not Detect) Salmonella (PCR) (Not Detect) 05/08/24 Range/Units 15:30 WBC (4.5-11.0) X10^3/uL RBC (4.0-5.2) X10^6/uL Hgb (12.0-16.0) g/dL Hct (36-46) % MCV (80-100) fL MCH (26-34) PG MCHC (30-36) % RDW (11.6-14.8) % Plt Count (150-400) X10^3/uL Neut % (Auto) (50-75) % Lymph % (Auto) (25-40) % [place] % (Auto) (3-14) % Eos % (Auto) (2-4) % Baso % (Auto) (0-2) % Neut # (Auto) (7734-1124) /uL Lymph # (Auto) (6519-4858) /uL [place] # (Auto) (0-900) /uL Eos # (Auto) (0-450) /uL Baso # (Auto) (0-100) /uL Sodium (137-145) mmol/L Potassium (3.4-5.1) mmol/L Chloride (98-107) mmol/L Carbon Dioxide (22-32) mmol/L BUN (7-17) mg/dL Creatinine (0.52-1.04) mg/dL Estimated GFR (>60) mL/min BUN/Creatinine Ratio (6-22) Glucose (80-110) mg/dL Calcium (8.4-10.2) mg/dL Magnesium (1.6-2.3) mg/dL Total Bilirubin (0.2-1.3) mg/dL AST (14-36) IU/L ALT (<35) IU/L Alkaline Phosphatase (38-126) U/L Total Protein (6.3-8.2) g/dL Albumin (3.5-5.0) g/dL Globulin (1.7-4.1) g/dL Albumin/Globulin Ratio (1.0-2.8) Lipase (23-300) U/L Urine RBC (0-5/HPF) Urine WBC (0-5/HPF) Ur Squamous Epith Cells (0-5/HPF) Urine Bacteria (None) Ur Culture Indicated? Vol Urine Centrifuged Stl C. cayetanensis PCR Not detected (Not Detect) Stool Rotavirus (PCR) Not detected (Not Detect) Stool Adenovirus (PCR) Not detected (Not Detect) Stool Astrovirus (PCR) Not detected (Not Detect) Stool Cryptosporidium PCR Not detected (Not Detect) Stl E.coli Shiga Tox PCR Not detected (Not Detect) St Sh/Enteroin Ecoli PCR Not detected (Not Detect) Stl Enterotoxigenic E PCR Not detected (Not Detect) Stool EPEC (PCR) Not detected (Not Detect) Stl E. histolytica PCR Not detected (Not Detect) Stool Giardia Lamblia PCR Not detected (Not Detect) Stool Sapovirus (PCR) Not detected (Not Detect) Stl P. shigelloides PCR Not detected (Not Detect) St Y.enterocolitica PCR Not detected (Not Detect) Stool Vibrio (PCR) Not detected (Not Detect) Stl Vibrio cholerae PCR Not detected (Not Detect) Stl Enteroaggr Ecoli PCR Not detected (Not Detect) Stl Norovirus GI/GII PCR Not detected (Not Detect) Chlamy pneumoniae PCR (Not Detect) Adenovirus (PCR) (Not Detect) B. pertussis DNA (PCR) (Not Detect) B.parapertussis DNA PCR (Not Detecte) Campylobacter (PCR) Not detected (Not Detect) C. difficile Tox (PCR) Not detected (Not Detect) Coronavirus OC43 (PCR) (Not Detect) Coronavirus HKU1 (PCR) (Not Detect) Coronavirus 229E (PCR) (Not Detect) SARS-CoV-2 (PCR) (Not Detecte) Coronavirus NL63 (PCR) (Not Detect) Human Metapneumovir PCR (Not Detect) Influenza Type A (PCR) (Not Detect) Influenza Type B (PCR) (Not Detect) M. pneumoniae (PCR) (Not Detect) Parainfluenza 1 (PCR) (Not Detect) Parainfluenza 2 (PCR) (Not Detect) Parainfluenza 3 (PCR) (Not Detect) Parainfluenza 4 (PCR) (Not Detect) RSV (PCR) (Not Detect) Entero/Rhino (PCR) (Not Detect) Salmonella (PCR) Not detected (Not Detect) Urine Dip Bedside Urine Glucose Negative Bedside Urine Bilirubin - Negative Bedside Urine Ketone - Negative Urine Specific [place] 1.015 Bedside Urine Occult Blood +/- Bedside Urine pH 5.0 Bedside Urine Protein + 30 Bedside Urine Urobilinogen - Negative Bedside Urine Nitrite - Negative Bedside Urine Leukocytes ++ [address] scan - abdomen/pelvis: Radiologist's Impression: [address] [address] [address] Scan Report Signed Patient: Soumya Reynolds MR#: [id number] : 1950 Acct:[id number] Age/Sex: 74 / F Date of Service: 05/08/24 Loc: ED Accession Number: [id number] Procedure: CT abdomen pelvis wo con Ordering Provider: Hunter Graves MD PROCEDURE: CT ABDOMEN PELVIS WO CON INDICATIONS: Diarrhea TECHNIQUE: Axial sections were acquired from the lung bases to the pubic symphysis. Coronal and sagittal reformats were performed. For radiation dose reduction, the following was used: automated exposure control, adjustment of mA and/or kV according to patient size. COMPARISON: None. FINDINGS: Image quality: Diagnostic. Lower Chest: Dependent atelectasis in posterior aspect of bilateral lung bases are seen. Heart size is normal, no pericardial effusion. URINARY: Right Kidney: No stones or hydronephrosis. 6 mm hyperdense area involving lower pole right kidney. Simple appearing cystic structure is seen in upper pole right kidney measures 4.3 x 4.3 cm in size. Right Ureter: No hydroureter. Left Kidney: No obstructing stones or hydronephrosis. 1.4 x 0.9 cm calcification is seen in upper to midpole left kidney and measures 961 Hounsfield unit in density. Simple appearing left renal cysts are seen measures up to 2.1 x 2.4 cm in size Left Ureter: No hydroureter. Bladder: Normal wall thickness. No stones. ABDOMEN: Liver: No contour-deforming solid mass. Gallbladder: Gallbladder is distended. No radiopaque gallstones or wall thickening. Biliary ducts: No biliary dilation. Pancreas: No ductal dilation. Spleen: Size is within normal limits. Adrenal Glands: No adrenal nodules. Stomach and Bowel: Normal colonic caliber, without significant wall thickening. Fluid is noted within nondistended small bowel loops which may be related to patient's clinical history of diarrhea. No abnormal small bowel wall thickening is seen. Appendix is visualized and is within normal limits. There is a small hiatal hernia. Mild sigmoid diverticulosis is seen without focal area of Thomas wall thickening to suggest diverticulitis. Peritoneum: No abnormal intraperitoneal fluid. No free air. Ventral Wall: No hernia. Abdominal Nodes: No enlarged retroperitoneal or mesenteric lymph nodes. Vessels: Aorta and inferior vena cava are normal in size. PELVIS: Pelvic Organs: Unremarkable. Pelvic Nodes: Unremarkable. Miscellaneous: No inguinal hernias are seen. Bones: No suspicious bony lesion. Degenerative disc disease throughout lower thoracic and lumbar spine is seen. No acute vertebral body compression fracture. IMPRESSION: 1. No obstructing stones or hydronephrosis. Nonobstructing stone versus parenchymal calcification in upper to midpole left kidney as above. Possible hyperdense cyst in lower pole right kidney measures 6 mm in size. Simple appearing bilateral renal cysts as above. If indicated, renal ultrasound as outpatient can be done for further evaluation of these areas. 2. No bowel obstruction or abnormal bowel wall thickening. Fluid-filled nondistended small bowel loops which may be related to patient's clinical history of diarrhea. Sigmoid diverticulosis without CT evidence of acute diverticulitis. No evidence of acute appendicitis. No free fluid or free air. No abscess collection. Dictated by: Cj Hernandez M.D. on 05/08/2024 at 13:30 Approved by: Cj Hernandez M.D. on 05/08/2024 at 13:45 [facility] Narrative Medical decision making narrative: Patient here with sent here from walk-in clinic for watery diarrhea 8 or 9 times a day for the past 9 days. No known sick contacts no foreign travel no contaminated foods no other people with these symptoms around her. No abdominal pain. Has had decreased urine output. Success very shaky today. Please see notes below from walk-in clinic. No recent antibiotics no fever chills. After history and exam GI panel respiratory panel CBC CMP magnesium normal saline CT abdomen pelvis [facility] Medical records reviewed: Walk-in clinic notes prior to arrival Differential considered: Includes but not limited to viral gastroenteritis colitis norovirus bowel obstruction Lab Test results independently reviewed as above. Pertinent findings: WBC 14.4 hemoglobin 12.4 sodium 128 potassium 4.1 bicarb 13 BUN 50 creatinine 2.95 GFR 16 glucose 133 lipase 258 urinalysis WBC 30-100 respiratory panel negative GI panel negative Independently reviewed EKG normal sinus rhythm normal EKG rate 66 Imaging studies independently reviewed: CT abdomen pelvis no acute finding Consultations: None indicated Treatments: Zofran normal saline Re-evaluations: 5:18 p.m.. Patient did have some watery diarrhea here. Reviewed results patient and . She had colonoscopy in [place] last year for screening. She will call that provider for repeat colonoscopy. I will prescribe her Lomotil as she has been on Imodium without success. Labs are reassuring as well as imaging. Return precautions reviewed. She desires discharge home. Discussion: Appropriate for discharge home exam is reassuring. Appropriate for short course of Lomotil as patient has not had success with Imodium. Laboratory studies and imaging studies are reassuring. Non infectious source of diarrhea. Return precautions reviewed. They desire discharge home Diagnosis: Diarrhea Discharge Plan Departure Patient Disposition: Home Clinical Impression: Diarrhea Qualifiers: Diarrhea type: unspecified type Qualified Code(s): R19.7 - Diarrhea, unspecified Instructions: DI for Diarrhea and Traveler's Diarrhea -- Adult Activity Restrictions/Additional Instructions: Your exam and laboratory studies and imaging studies are reassuring. Please do call your provider that did your colonoscopy last year for re-evaluation and possible repeat colonoscopy due to diarrhea. Short course of prescription medication as been provided for you for diarrhea. Keep well hydrated. Return if worse if any questions or concerns. Prescriptions: New diphenoxylate-atropine [Lomotil] 2.5-0.025 mg tablet 1 tab PO Q12H PRN (Reason: diarrhea) Qty: 10 0RF No Action (DME) Disabled Parking Qty: 1 0RF Rx Instructions: As directed Disabled Parking Permit See Rx Instructions .ROUTE .COMPLEX Qty: 1 0RF Rx Instructions: I find this patient to be medically disabled and qualify for disabled parking as indicated and signed on the accompanying disabled parking application for individuals. rosuvastatin 5 mg tablet 5 mg PO 2XW Qty: 24 2RF diphenhydramine HCl [Benadryl] 25 mg capsule 25 mg PO BEDTIME PRN (DME) disabled parking permit 0 .ROUTE .MEDSUPPLY Qty: 1 0RF Rx Instructions: As directed. patient qualifies for disabled parking as per attached form. (DME) disabled parking permit 0 .ROUTE .MEDSUPPLY Qty: 1 0RF Rx Instructions: As directed. patient qualifies for disabled parking as per attached form. omega 0-nqs-vtj-fish oil [Fish Oil] 1,000 mg (120 mg-180 mg) capsule 1 cap PO BID (DME) Glucometer See Rx Instructions .Route .MEDSUPPLY Qty: 1 0RF Rx Instructions: Take blood sugars at least daily fasting for diabetes (DME) Glucose: Test Strips See Rx Instructions .Route .MEDSUPPLY Qty: 250 0RF Rx Instructions: Use to test blood sugars twice a day (DME) Lancette See Rx Instructions .Route .MEDSUPPLY Qty: 1 0RF Rx Instructions: As directed (DME) Lancers See Rx Instructions .Route .MEDSUPPLY Qty: 300 3RF Rx Instructions: Check blood sugars at least daily and up to 3 times per day as needed. atenolol 50 mg tablet See Rx Instructions .ROUTE .COMPLEX Qty: 180 3RF Dose Instruction: take 1 tablet by mouth twice a day Rx Instructions: take 1 tablet by mouth twice a day ezetimibe [Zetia] 10 mg tablet 10 mg PO DAILY Qty: 90 3RF Rx Instructions: Take 1 tab daily for elevated cholesterol glipizide 5 mg tablet 5 mg PO BID Qty: 180 3RF Rx Instructions: Take 1 tab twice per day for diabetes lisinopril 20 mg tablet 40 mg PO BID Qty: 360 3RF omeprazole 20 mg capsule,delayed release(DR/EC) 20 mg PO DAILY PRN (Reason: GERD) Qty: 90 3RF Rx Instructions: Take 1 tab daily as needed for GERD tirzepatide 5 mg/0.5 mL pen injector 5 mg SUBCUT QWEEK Qty: 2 1RF Rx Instructions: Inject SQ weekly x4+ weeks Referrals: Moira Reyes FNP-BC [Primary Care Provider] - Stand Alone Forms: Patient Portal/API
[2024-05-08] MEDS: SODIUM CHLORIDE 0.9% 1,000 ML 1000 ML IV (13:09)
[2024-05-08 13:13] LABS: Alanine Aminotransferase 11 IU/L (<35); Albumin 4.1 g/dL (3.5-5.0); Albumin Globulin Ratio 1.4 (1.0-2.8); Alkaline Phosphatase 51 U/L (38-126); Aspartate Aminotransferase 18 IU/L (14-36); BUN Creatinine Ratio 16.9 (6-22); Bilirubin Total 0.6 mg/dL (0.2-1.3); Blood Urea Nitrogen 50 mg/dL (7-17); Calcium 9.2 mg/dL (8.4-10.2); Carbon Dioxide 13 mmol/L (22-32); Chloride 102 mmol/L (98-107); Estimated Glomerular Filt Rate 16 mL/min (>60); Globulin 2.9 g/dL (1.7-4.1); Glucose 133 mg/dL (80-110); Lipase 258 U/L (23-300); Potassium 4.1 mmol/L (3.4-5.1); Sodium 128 mmol/L (137-145)
[2024-05-08 13:14] LABS: HEMOLYSIS 51 (0-50)
[2024-05-08 13:21] LABS: Magnesium 1.2 mg/dL (1.6-2.3)
[2024-05-08 14:02] LABS: Adenovirus Not Detected (Not Detect); B. parapertussis Not Detected (Not Detecte); Bordetella pertussis Not Detected (Not Detect); Chlamydophila pneumoniae Not Detected (Not Detect); Coronavirus 229E Not Detected (Not Detect); Coronavirus HKU1 Not Detected (Not Detect); Coronavirus NL 63 Not Detected (Not Detect); Coronavirus OC43 Not Detected (Not Detect); Human Metapneumovirus Not Detected (Not Detect); Human Rhinovirus/Enterovirus Not Detected (Not Detect); Influenza A Not Detected (Not Detect); Influenza B Not Detected (Not Detect); Mycoplasma pneumoniae Not Detected (Not Detect); Parainfluenza Virus 1 Not Detected (Not Detect); Parainfluenza Virus 2 Not Detected (Not Detect); Parainfluenza Virus 3 Not Detected (Not Detect); Parainfluenza Virus 4 Not Detected (Not Detect); Respiratory Syncytial Virus Not Detected (Not Detect); SARS- CoV-2 Not Detected (Not Detecte)
[2024-05-08 14:08] LABS: RBC Urine 1-5/HPF (0-5/HPF); Urine Volume 10mL (spun)
[2024-05-08 14:09] LABS: Bacteria Urine Many (>30); Squamous Epithelial Cell Urine 1-5 /HPF (0-5/HPF); WBC Urine 30-100/HPF (0-5/HPF)
[2024-05-08 17:02] LABS: Adenovirus F 40/41 Not Detected (Not Detect); Astrovirus Not Detected (Not Detect); Campylobacter Not Detected (Not Detect); Clostridium difficile toxin AB Not Detected (Not Detect); Cryptosporidium Not Detected (Not Detect); Cyclospora cayetanensis Not Detected (Not Detect); Entamoeba histolytica Not Detected (Not Detect); Enteroaggregative E.coli Not Detected (Not Detect); Enteropathogenic E.coli Not Detected (Not Detect); Enterotoxigenic E.coli It/st Not Detected (Not Detect); Giardia lamblia Not Detected (Not Detect); Norovirus GI/GII Not Detected (Not Detect); Plesiomonsa shigelloides Not Detected (Not Detect); Rotavirus A Not Detected (Not Detect); Salmonella Not Detected (Not Detect); Sapovirus Not Detected (Not Detect); Shiga-like toxin-prod E.coli Not Detected (Not Detect); Shigella/Enteroinvasive E.coli Not Detected (Not Detect); Vibrio Not Detected (Not Detect); Vibrio cholerae Not Detected (Not Detect); Yersinia enterocolitica Not Detected (Not Detect)
== END 2024-05-08 17:35 | disposition home or self-care (01) ==
PROVIDERS: Emergency Provider Emergency Medicine; PCP Nurse Practitioner Family
DX: R19.7 Diarrhea, unspecified (principal); R10.9 Unspecified abdominal pain; R79.89 Other specified abnormal findings of blood chemistry; Z79.01 Long term (current) use of anticoagulants; Z79.899 Other long term (current) drug therapy; Z11.52 Encounter for screening for COVID-19
CPT/HCPCS: 36415; 74176; 80053; 81003; 81015; 83690; 83735; 85025; 87077; 87086; 87186; 87507; 87633; 93005; 96360; 96361; 99284

== ENCOUNTER → 2024-06-15 09:38 | Outpatient (CLI) | payer MEDICARE, OTHER, SELFPAY ==
[2024-06-15 10:37] LABS: Add Manual Diff / Slide Review NO; Basophils Absolute Auto 100 /uL (0-100); Basophils Percent Auto 1.1 % (0-2); Eosinophils Absolute Auto 400 /uL (0-450); Eosinophils Percent Auto 5.4 % (2-4); Hemoglobin 12.6 g/dL (12.0-16.0); Lymphocytes Absolute Auto 1900 /uL (1100-4500); Mean Corpuscular HGB Conc 32.3 % (30-36); Mean Corpuscular Hemoglobin 26.9 PG (26-34); Mean Corpuscular Volume 83.3 fL (80-100); Monocytes Absolute Auto 600 /uL (0-900); Monocytes Percent Auto 8.5 % (3-14); Neutrophils Absolute Auto 4400 /uL (1500-7000); Platelet Count 303 X10^3/uL (150-400); Red Blood Cell Count 4.68 X10^6/uL (4.0-5.2); Red Cell Distribution Width 15.6 % (11.6-14.8); White Blood Cell Count 7.4 X10^3/uL (4.5-11.0)
[2024-06-15 10:44] LABS: Hemoglobin A1C% w Est Avg Glu 5.8 % (4.0-6.0)
[2024-06-15 10:52] LABS: Alanine Aminotransferase 15 IU/L (<35); Albumin 4.1 g/dL (3.5-5.0); Albumin Globulin Ratio 1.5 (1.0-2.8); Alkaline Phosphatase 72 U/L (38-126); Aspartate Aminotransferase 22 IU/L (14-36); BUN Creatinine Ratio 12.8 (6-22); Bilirubin Total 0.6 mg/dL (0.2-1.3); Blood Urea Nitrogen 31 mg/dL (7-17); Calcium 10.3 mg/dL (8.4-10.2); Carbon Dioxide 21 mmol/L (22-32); Chloride 107 mmol/L (98-107); Estimated Glomerular Filt Rate 20 mL/min (>60); Globulin 2.8 g/dL (1.7-4.1); Glucose 141 mg/dL (80-110); HEMOLYSIS < 15 (0-50); Potassium 5.2 mmol/L (3.4-5.1); Sodium 136 mmol/L (137-145); Total Protein 6.9 g/dL (6.3-8.2)
[2024-06-15 11:30] LABS: Creatinine Urine Random 97.19 mg/dL
[2024-06-15 12:14] LABS: Microalbumin Urine Random 60.7 mg/dL (0-1.6)
== END ==
PROVIDERS: PCP Nurse Practitioner Family; Referring Provider Nurse Practitioner; Visit Provider Nurse Practitioner
DX: E11.22 Type 2 diabetes mellitus with diabetic chronic kidney disease (principal); N18.4 Chronic kidney disease, stage 4 (severe); E11.69 Type 2 diabetes mellitus with other specified complication; E78.2 Mixed hyperlipidemia
CPT/HCPCS: 36415; 80053; 82043; 82570; 83036; 85025

== ENCOUNTER → 2024-07-21 11:12 | Outpatient (CLI) | payer MEDICARE, OTHER, SELFPAY ==
[2024-07-21 11:59] LABS: Alanine Aminotransferase 15 IU/L (<35); Albumin Globulin Ratio 1.5 (1.0-2.8); Alkaline Phosphatase 79 U/L (38-126); Aspartate Aminotransferase 24 IU/L (14-36); BUN Creatinine Ratio 19.3 (6-22); Bilirubin Total 0.4 mg/dL (0.2-1.3); Blood Urea Nitrogen 41 mg/dL (7-17); Carbon Dioxide 20 mmol/L (22-32); Chloride 106 mmol/L (98-107); Estimated Glomerular Filt Rate 24 mL/min (>60); Globulin 2.7 g/dL (1.7-4.1); Glucose 125 mg/dL (80-110); HEMOLYSIS < 15 (0-50); Potassium 4.8 mmol/L (3.4-5.1); Sodium 134 mmol/L (137-145); Total Protein 6.7 g/dL (6.3-8.2)
== END ==
LOC: LAB 11:13
PROVIDERS: PCP Nurse Practitioner Family; Referring Provider Nurse Practitioner Family; Visit Provider Nurse Practitioner Family
DX: E11.22 Type 2 diabetes mellitus with diabetic chronic kidney disease (principal); I12.9 Hypertensive chronic kidney disease with stage 1 through stage 4 chronic kidney disease, or unspecified chronic kidney disease; N18.4 Chronic kidney disease, stage 4 (severe)
CPT/HCPCS: 36415; 80053

== ENCOUNTER → 2024-09-24 12:44 | Outpatient (CLI) | payer MEDICARE, OTHER, SELFPAY ==
--- NOTE | 2024-09-24 12:45 | DI.CT.S_ITS ---
PROCEDURE: CT HEAD/BRAIN WO CON INDICATIONS: new onset headache occipital region TECHNIQUE: Noncontrast 4.5 mm thick angled axial sections acquired from the foramen magnum to the vertex, with coronal and sagittal reformats. For radiation dose reduction, the following was used: automated exposure control, adjustment of mA and/or kV according to patient size. COMPARISON: CT, CT HEAD/BRAIN WO CON, 01/29/2022, 11:36. FINDINGS: Image quality: Diagnostic. CSF spaces: Basal cisterns are patent. No extra-axial fluid collections. The ventricles are symmetric in size and shape. Brain: No intracranial bleeds or masses. There is cerebral volume loss for age, with resultant ventricular and sulcal prominence. There are periventricular and deep white matter chronic small vessel ischemic changes. There is intracranial internal carotid artery atherosclerosis. Skull and face: Calvarium and visualized facial bones appear intact, without suspicious lesions. Slight focal thickening of the outer table of the right occipital-parietal calvarium has been previously present. Sinuses: Visualized sinuses and mastoids are clear. IMPRESSION: No acute intracranial pathology. Dictated by: Kvng Hedrick M.D. on 09/24/2024 at 13:31 Approved by: Kvng Hedrick M.D. on 09/24/2024 at 13:34
== END ==
PROVIDERS: PCP Nurse Practitioner Family; Referring Provider Nurse Practitioner Family; Visit Provider Nurse Practitioner Family
DX: R51.9 Headache, unspecified (principal); E11.8 Type 2 diabetes mellitus with unspecified complications; E11.22 Type 2 diabetes mellitus with diabetic chronic kidney disease; N18.4 Chronic kidney disease, stage 4 (severe); E11.69 Type 2 diabetes mellitus with other specified complication; E78.2 Mixed hyperlipidemia; I10 Essential (primary) hypertension
CPT/HCPCS: 70450

== ENCOUNTER → 2024-11-16 08:29 | Outpatient (CLI) | payer MEDICARE, OTHER, SELFPAY ==
[2024-11-16 09:14] LABS: Add Manual Diff / Slide Review NO; Basophils Absolute Auto 100 /uL (0-100); Eosinophils Absolute Auto 500 /uL (0-450); Eosinophils Percent Auto 6.8 % (2-4); Hematocrit 34.8 % (36-46); Hemoglobin 11.5 g/dL (12.0-16.0); Lymphocytes Absolute Auto 1700 /uL (1100-4500); Lymphocytes Percent Auto 23.9 % (25-40); Mean Corpuscular HGB Conc 33.1 % (30-36); Mean Corpuscular Hemoglobin 27.5 PG (26-34); Monocytes Absolute Auto 600 /uL (0-900); Monocytes Percent Auto 8.8 % (3-14); Neutrophils Absolute Auto 4300 /uL (1500-7000); Neutrophils Percent Auto 59.5 % (50-75); Platelet Count 272 X10^3/uL (150-400); Red Blood Cell Count 4.19 X10^6/uL (4.0-5.2); Red Cell Distribution Width 16.1 % (11.6-14.8); White Blood Cell Count 7.3 X10^3/uL (4.5-11.0)
[2024-11-16 09:47] LABS: Creatinine Urine Random 84.77 mg/dL
[2024-11-16 09:48] LABS: Alanine Aminotransferase 15 IU/L (<35); Albumin 4.1 g/dL (3.5-5.0); Albumin Globulin Ratio 1.6 (1.0-2.8); Alkaline Phosphatase 77 U/L (38-126); Aspartate Aminotransferase 21 IU/L (14-36); BUN Creatinine Ratio 18.3 (6-22); Bilirubin Total 0.6 mg/dL (0.2-1.3); Blood Urea Nitrogen 39 mg/dL (7-17); Calcium 9.9 mg/dL (8.4-10.2); Carbon Dioxide 21 mmol/L (22-32); Chloride 108 mmol/L (98-107); Estimated Glomerular Filt Rate 24 mL/min (>60); Globulin 2.5 g/dL (1.7-4.1); Glucose 108 mg/dL (70-99); HEMOLYSIS < 15 (0-50); Sodium 137 mmol/L (137-145); Total Protein 6.6 g/dL (6.3-8.2)
[2024-11-16 09:50] LABS: Potassium 5.4 mmol/L (3.4-5.1)
[2024-11-16 10:15] LABS: TSH w/ Reflex to FT4 1.85 uIU/mL (0.47-4.68)
[2024-11-16 10:17] LABS: Microalbumin Urine Random 32.4 mg/dL (0-1.6)
== END ==
PROVIDERS: PCP Nurse Practitioner Family; Referring Provider Nurse Practitioner Family; Visit Provider Nurse Practitioner Family
DX: I12.9 Hypertensive chronic kidney disease with stage 1 through stage 4 chronic kidney disease, or unspecified chronic kidney disease (principal); E11.69 Type 2 diabetes mellitus with other specified complication; E11.22 Type 2 diabetes mellitus with diabetic chronic kidney disease; E11.8 Type 2 diabetes mellitus with unspecified complications; N18.4 Chronic kidney disease, stage 4 (severe); E78.2 Mixed hyperlipidemia
CPT/HCPCS: 36415; 80053; 82043; 82570; 83036; 84443; 85025

== ENCOUNTER → 2025-03-19 10:23 | Outpatient (CLI) | payer MEDICARE, OTHER, SELFPAY ==
[2025-03-19 11:40] LABS: Appearance Urine UA SL CLOUDY; Bilirubin Urine UA NEGATIVE (NEGATIVE); Color Urine UA YELLOW; Glucose Urine UA NEGATIVE (Negative); Ketones Urine UA NEGATIVE (NEGATIVE); Leukocyte Esterase Urine UA 1+ (NEGATIVE); Nitrite Urine UA POSITIVE (Negative); Occult Blood Urine UA NEGATIVE (Negative); Protein Urine UA 1+ (Negative); Specific Gravity Urine UA 1.010 (1.000-1.035); Urobilinogen Urine UA 0.2 E.U./dL (0.2); pH Urine UA 6.0 (4.5-8.0)
[2025-03-19 11:43] LABS: Culture Indicated Urine Specimen Cultured
[2025-03-19 11:53] LABS: Protein (Total) Urine Random 55 mg/dL (0-12); Protein Creatinine Ratio Urine 0.92 GRAM/24H
[2025-03-19 12:00] LABS: Blood Urea Nitrogen 35 mg/dL (7-17); Calcium 9.9 mg/dL (8.4-10.2); Carbon Dioxide 21 mmol/L (22-32); Chloride 105 mmol/L (98-107); Estimated Glomerular Filt Rate 24 mL/min (>60); Glucose 127 mg/dL (70-99); HEMOLYSIS < 15 (0-50); Phosphorous 4.4 mg/dL (2.8-4.1); Potassium 4.6 mmol/L (3.4-5.1); Sodium 137 mmol/L (137-145)
[2025-03-19 12:01] LABS: Add Manual Diff / Slide Review NO; Hematocrit 37.3 % (36-46); Hemoglobin 12.3 g/dL (12.0-16.0); Lymphocytes Absolute Auto 2700 /uL (1100-4500); Mean Corpuscular HGB Conc 33.1 % (30-36); Mean Corpuscular Hemoglobin 27.7 PG (26-34); Mean Corpuscular Volume 83.8 fL (80-100); Platelet Count 306 X10^3/uL (150-400)
[2025-03-19 12:19] LABS: Vitamin D 25 Hydroxy (D3) 49.1 ng/mL (30.0-100.0)
== END ==
PROVIDERS: PCP Nurse Practitioner Family; Referring Provider Nurse Practitioner Family; Visit Provider Internal Medicine Nephrology
DX: N18.30 Chronic kidney disease, stage 3 unspecified (principal)
CPT/HCPCS: 36415; 80048; 81001; 82306; 82570; 83970; 84100; 84156; 85025; 87077; 87086; 87186